=== PATIENT | male | born 1950 | race Caucasian/White ===

== ENCOUNTER 2023-10-05 08:19 | Emergency (ER) | payer OTHER, SELFPAY ==
[2023-10-05 08:20] VITALS: BP 137/73
--- NOTE | 2023-10-05 09:15 | ED.GENMED ---
History of Present Illness
General
Chief Complaint: Urinary Symptoms
Source: patient
Time Seen by Provider: 10/05/23 08:56
Travel History
Have you had any contact with someone who has COVID-19?: No
Do you have any symptoms of coronavirus? Fever > 100 degrees, chills, cough, shortness of breath, sore throat, loss of taste or smell, muscle aches, or headache?: No
History of Present Illness
History of Present Illness:
73-year-old male with past medical history of TIA/CVA, hypertension, hyperlipidemia, BPH, diabetes presenting to the emergency department for evaluation of hematuria that has been ongoing for around 5 days, gradually worsening during this time with
patient stating that he will often have a harder time finishing his urinary stream. He notes that the urine seems very concentrated and intermittently will have small to medium size clots. Patient had a urinalysis done this past Wednesday which did
not show any sign of infection. He denies any fevers, chills, rigors, nausea, vomiting, back or flank pain. Patient's primary care physician recommended he stop taking his Plavix on and patient is since that time. He notes a previous
history of stone removal/stenting as well as partial prostate removal done by Dr. Sterling here at this facility. No other concerns at this time.
Past History
Past History
ED Past Medical History: CVA, HTN, Hypercholesterolemia and NIDDM
ED Past Surgical History: Appendectomy and Urological
Social History
Tobacco: Non-smoker
Alcohol: None
Drug: None
Personal:
Living: with family
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
Family History
Family History: Other
Review of Systems
Review of Systems
All Other Systems: ROS reviewed and negative except as documented in HPI and ROS
Phy Exam
Physical Exam
Physical Exam:
GENERAL: Alert , in no apparent distress
EYE: clear conjunctiva b/l
HEAD: NCAT
ENT: o/p clr, mmm.
ABDOMEN: Slightly full and distended suprapubic region, no r/g, no cvat
NEUROLOGICAL: Alert and oriented
SKIN: Warm and dry, skin intact.
MUSCULOSKELETAL: No edema, well perfused.
PSYCH: Normal and appropriate interaction.
Scores
Heart Failure Risk
Heart Failure Risk Score: Not Applicable
Heart Score for Chest Pain Patients
STEMI patient?: Not applicable
Withdrawal Assessment of Alcohol
Withdrawal Assessment Completed?: Not applicable
Course
Orders/Labs/Results
Orders:
Orders
10/05/23 09:15
CT Abd/pel Without Iv Or Oral Urgent
Comment:
Reason For Exam: hematuria, hx of kidney stones
10/05/23 09:17
Basic Metabolic Panel Urgent
Complete Blood Count/With Diff Urgent
10/05/23 10:32
CBI- Treatment PRN
Solution: NSS
Irrigate to Clear?: Yes
10/05/23 10:56
Sterile Water [Sterile Water For Injection] 10 ml .ROUTE .[facility]
10/05/23 12:05
Urinalysis Reflex To Culture Urgent
Date Specimen was Collected: 10/05/23
Time Specimen was Collected: 08:25
Urine Microscopic Reflex Cult Urgent
Abnormal Lab Results
10/05/23 10/05/23
09:17 12:05
RBC 2.62 L 10^6/uL
(4.70-6.10)
Hgb 8.0 L g/dL
(13.0-18.0)
Hct 23.3 L %
(39.0-52.0)
Abs Immat Gran (auto) 0.1 H 10^3/uL
(0-0.05)
Absolute Monos (auto) 0.7 H 10^3/uL
(0.1-0.6)
Immature Gran % 0.9 H %
(0-0.5)
Lymphocytes % 20.0 L %
(20.5-51.1)
Monocytes % 9.7 H %
(1.7-9.3)
Chloride 109 H mmol/L
(98-107)
BUN 33 H mg/dl
(9-20)
Creatinine 1.6 H mg/dL
(0.7-1.3)
Glucose 212 H mg/dl
(70-99)
Urine Ketones 1+ A
(Negative)
Ur Occult Blood Reflex 4+ A
(Negative)
Leukocyte Esterase Rfl Trace A
(Negative)
Urine RBC >100 A /HPF
(0-2)
Urine Glucose Trace A
(Negative)
Urine Albumin (Reflex) 3+ A
(Neg - Trace)
10/05/23 09:17
10/05/23 09:17
Vital Signs
Initial and Last Documented VS:
Initial Vital Signs
Temp Pulse Resp BP Pulse Ox
98.1 F 76 18 137/73 100
10/05/23 08:20 10/05/23 08:20 10/05/23 08:20 10/05/23 08:20 10/05/23 08:20
Last Documented Vital Signs
Temp Pulse Resp BP Pulse Ox
98.1 F 71 16 152/64 99
10/05/23 08:20 10/05/23 13:21 10/05/23 13:21 10/05/23 13:21 10/05/23 13:21
MDM/Problems Addressed
Differential Diagnosis Includes:
Urinary tract infection, urinary retention, malignancy, kidney stone/bladder stone, prostate enlargement
MDM/Problems Addressed:
73-year-old male presented emergency department for evaluation of hematuria that has been ongoing for the last 5 days. Reports he had a urinalysis done couple of days ago which did not show any signs of infection. Due to persistent symptoms came
to the emergency department for further evaluation. Patient denies any fevers, is otherwise well-appearing and in no acute distress. I did perform a bladder scan which revealed little greater than 350 mL of urine. Given patient's difficulty fully
emptying his bladder I did offer a Gonzalez catheter however patient declines at this time. Will check labs and CT abd/pelvis
*Radiology
Radiology exam reviewed: radiology read reviewed
*Pulse Oximetry
Patient hypoxic: no
*Critical Care Note
Total Time (30-74mins, 75-104mins- exclusive of procedures): Not Applicable
Data Reviewed
Review of Other/Old Records Reveals: Labs, Records and Discharge Summary
Source: patient and records
Comment
Comment:
Labs show a chronic anemia which is right at patient's baseline with hemoglobin of 8. He also has known chronic kidney disease which is at baseline as well.
10:30 AM: CT shows urinary bladder containing large amount of blood products/blood clot cannot rule out underlying mass. There is also incidental pulmonary nodule. Patient was provided with a printout of the CT scan report. He is advised to
follow-up with primary care physician for the pulmonary nodule. ultimately decision was made to proceed with CBI given patient's urinary symptoms and CT finding. Pending findings after CBI would like to discharge patient home with outpatient
follow-up. Anticipate starting antibiotics with close urology outpatient follow-up.
Patient Management
Discussion with other providers: Cashier Payments Received
Escalation/DeEscalation of care consider admission/obs:
Patient seen by urology at bedside who manually irrigated the Gonzalez catheter and was able to break up further amounts of clot and was able to get the urine/clear. Recommends antibiotic for 5 days. Will prescribe cefuroxime for this. Also
recommends prescription for finasteride and this can be either discontinued or continued based off of patient's follow-up with Dr. Sterling as an outpatient. Patient advised to have repeat blood work especially for his hemoglobin to be rechecked
over the next 1 to 2 weeks. Patient requesting a prescription for iron supplement as he has been on this in the past. All these prescriptions were sent to patient's pharmacy. Aware of return precautions. Otherwise stable for discharge home.
ED Attending Note
-
Portions of this chart may have been created with voice recognition software.� Occasional wrong word or��sound alike� substitutions may have occurred due to the inherent limitations of voice recognition software.
Discharge Plan
Departure
Patient Disposition: Home (Routine Discharge)
Date of Disposition: 10/05/23
Time of Disposition: 13:38
Patient with high blood pressure during this ER visit?: Yes
Discharge Problem:
Hematuria, Anemia, CKD (chronic kidney disease)
Instructions: Blood in the Urine (Hematuria), Adult (DC)
Prescriptions:
New
cefuroxime axetil 500 mg tablet
500 mg PO BID 5 Days Qty: 10 0RF
finasteride 5 mg tablet
5 mg PO DAILY Qty: 30 0RF
ferrous sulfate [iron] 325 mg (65 mg iron) tablet
325 mg PO DAILY Qty: 30 0RF
No Action
atorvastatin 20 mg Tablet
20 mg PO QPM
Patient Comments:
10/05/2023, per [facility], pt. last filled in June 2023 for 90-day supply.
carvedilol 12.5 mg Tablet
12.5 mg PO BID
Patient Comments:
10/05/2023, per [facility], pt. last filled in June 2023 for 90-day supply.
hydrochlorothiazide 25 mg Tablet
25 mg PO DAILY
Patient Comments:
10/05/2023, per [facility], pt. last filled in August 2023 for 90-day supply.
clopidogrel [Plavix] 75 mg Tablet
75 mg PO DAILY
Patient Comments:
10/05/2023, per pt., his doctor said he could stop taking this med. because pt. has had blood in his urine. Pt. has not resumed taking it yet. 10/05/2023, per [facility], pt. last filled in June 2023 for 90-day supply.
metformin 850 mg Tablet
850 mg PO BID
Patient Comments:
10/05/2023, per [facility], pt. last filled in 06/06/2023 for 90-day supply.
fenofibrate micronized 200 mg Capsule
200 mg PO DAILY
Patient Comments:
10/05/2023, per [facility], pt. last filled in August 2023 for 90-day supply.
ergocalciferol (vitamin D2) [Vitamin D2] 1,250 mcg (50,000 unit) Capsule
1,250 mcg PO SA@0800
valsartan 160 mg Tablet
160 mg PO QPM
Patient Comments:
10/05/2023, per [facility], pt. last filled in August 2023 for 90-day supply.
ciprofloxacin HCl 500 mg Tablet
500 mg PO BID
Patient Comments:
10/05/2023, pt. filled this med. on 10/01/2023 and is instructed to take one tablet BID for 5 days. Per pt., his doctor said he could stop taking this med. yesterday (10/04/2023).
cholecalciferol (vitamin D3)
1 tab PO DAILY
Referrals:
Ritesh Sterling MD [Active] -
Ezequiel Champion DO [Family Provider] -
Interventions
Interventions:
*Risk Screen - Suicide Last Done: 10/05/23 08:20
*General Assessment Last Done: 10/05/23 08:20
*Neglect/Abuse Screening Last Done: 10/05/23 08:20
ED- Fall Risk Assessment Last Done: 10/05/23 13:45
*ED COVID-19 Vaccine History Last Done: 10/05/23 08:52
*Nursing Disposition Last Done: 10/05/23 13:45
ED-Male Genitourinary Assessment Last Done: 10/05/23 08:51
Discharge Date and Time
Discharge Date/Time: 10/05/23 14:04
[2023-10-05 09:30] LABS: % Basophils 0.9 % (0-2); % Eosinophils 1.3 % (0-6); % Immature Granulocytes 0.9 % (0-0.5); % Monocytes 9.7 % (1.7-9.3); % Neutrophils 67.2 % (42.2-75.2); Absolute Basophils 0.1 10^3/uL (0-0.2); Absolute Eosinophils 0.1 10^3/uL (0-0.7); Absolute Immature Granulocytes 0.1 10^3/uL (0-0.05); Absolute Lymphocytes 1.4 10^3/uL (1.2-3.4); Absolute Monocytes 0.7 10^3/uL (0.1-0.6); Absolute Neutrophils 4.7 10^3/uL (1.4-6.5); Hematocrit 23.3 % (39.0-52.0); Mean Corp Hgb Conc. 34.3 g/dL (33.0-37.0); Mean Corpuscular Hgb 30.5 pg (27.0-31.0); Mean Corpuscular Volume 88.9 fL (80.0-94.0); Mean Platelet Volume 10.1 fL (7.4-10.4); Nucleated Red Blood Cells % 0 % (-); Platelet Count 262 10^3/uL (130-400); Red Blood Cell Count 2.62 10^6/uL (4.70-6.10); Red Cell Dist. Width 14.2 % (11.5-14.5); White Blood Cell Count 6.9 10^3/uL (4.8-10.8)
[2023-10-05 09:44] LABS: Blood Urea Nitrogen 33 mg/dl (9-20); Calcium 9.2 mg/dl (8.4-10.2); Carbon Dioxide 22 mmol/L (22-30); Chloride 109 mmol/L (98-107); Glucose 212 mg/dl (70-99); Potassium 3.9 mmol/L (3.5-5.1); Sodium 140 mmol/L (135-145)
[2023-10-05 10:08] VITALS: BP 123/66
--- NOTE | 2023-10-05 11:16 | EDRN ---
CBI initiated via a 22 3-way catheter. Tolerated well, pink-tinged initial output.
[2023-10-05 12:13] VITALS: BP 137/81
[2023-10-05 12:20] LABS: Urine Albumin 3+ (Neg - Trace); Urine Bilirubin Negative (Negative); Urine Character Bloody (Clear); Urine Color Red; Urine Glucose Trace (Negative); Urine Ketone 1+ (Negative); Urine Leukocyte Trace (Negative); Urine Nitrite Negative (Negative); Urine Occult Blood 4+ (Negative); Urine Urobilinogen Negative (Neg - 1+)
[2023-10-05 12:24] LABS: Urine Red Blood Cell >100 /HPF (0-2)
[2023-10-05 13:21] VITALS: BP 152/64
--- NOTE | 2023-10-11 10:53 | OID.L.PAT ---
Pulmonary Nodule Pat Letter
- -
10/11/23
MARTHA POON
[address]
[place], [place] [address]
Gianfranco THOMAS,
A pulmonary nodule was seen on an imaging study done by [facility]. This was reviewed by the [facility] Pulmonary Nodule Advisory Board and the following recommendation was made:
Recommendation: Follow up CT Chest in 12 months
If you have any questions, please do not hesitate to contact your primary care physician. If you are in need of a Physician, you can go to [email or web address] and click on 'Find a Provider'. Type 'Family Medicine' in the search.
Oncology Nurse Navigator
[facility]
[phone]
--- NOTE | 2023-10-11 10:54 | OID.L.REC ---
Pulmonary Nodule Follow Up
- Recommendation
10/11/23
Pulmonary Nodule Review Recommendations
Your patient, MARTHA POON, had a pulmonary nodule seen on an imaging study done on 10/05/23 in the [facility] Emergency Room.
This was reviewed by the [facility] Pulmonary Nodule Advisory Board and the following recommendation was made:
Recommendation: Follow up CT Chest in 12 months
If you have any questions please do not hesitate to contact us.
Sincerely,
Oncology Nurse Navigator
[facility]
[phone]
== END 2023-10-05 14:04 | disposition home or self-care (01) ==
LOC: EMR 08:19
PROVIDERS: Emergency Medicine; Physician Assistant Medical; EMERGENCY PHYSICIAN Student in an Organized Health Care Education/Training Program; FAMILY PHYSICIAN Family Medicine
DX: R31.9 Hematuria, unspecified (principal); D64.9 Anemia, unspecified; I12.9 Hypertensive chronic kidney disease with stage 1 through stage 4 chronic kidney disease, or unspecified chronic kidney disease; E11.22 Type 2 diabetes mellitus with diabetic chronic kidney disease; N18.9 Chronic kidney disease, unspecified; E78.00 Pure hypercholesterolemia, unspecified; N40.0 Benign prostatic hyperplasia without lower urinary tract symptoms; Z87.442 Personal history of urinary calculi
CPT/HCPCS: 99284; 74176; 80048; 81003; 81015; 85025